=== PATIENT | female | born 1985 | race Asian ===

== ENCOUNTER 2025-03-02 17:21 | Emergency (ER) | payer SELFPAY ==
[2025-03-02] MEDS ORDERED: HYDROcodone/Acetaminophen 5/325 mg Tablet ONE (18:39)
== END 2025-03-02 18:40 | disposition home or self-care (01) ==
LOC: CSHERS 17:21
DX: M79.642 Pain in left hand (principal); W23.1XXA Caught, crushed, jammed, or pinched between stationary objects, initial encounter
CPT/HCPCS: 99283